=== PATIENT | male | born 1960 | race Caucasian/White ===

== ENCOUNTER 2017-12-22 13:51 | Observation (INO) | payer MEDICARE, MEDICAID ==
[2017-12-22] MEDS ORDERED: Ondansetron INJ* 2 MG/ML VIAL IV ONE (14:36)
[2017-12-22] MEDS ORDERED: cefTRIAXone(*) 1 GM in NS 0.9% 50 ML* 50 ML IVPB ONE (14:36)
[2017-12-22] MEDS ORDERED: NS 0.9% 1000 ML* 1,000 ML IV ONE (14:36)
[2017-12-22] MEDS ORDERED: fentaNYL* 50 MCG/ML 2 ML VIAL (100 MCG VIAL) IV SLOW PU ONE (14:37)
[2017-12-22 15:22] LABS: ABS Basophils 0 10^3/ul (0-0.2); ABS Eosinophils 0.1 10^3/ul (0-0.6); ABS Lymphocytes 1.6 10^3/ul (1.0-4.8); ABS Monocytes 1.1 10^3/ul (0-0.8); ABS Neutrophils 8.4 10^3/ul (1.5-7.7); ABS Nucleated RBC 0 10^3/ul; Eosinophil % 0.6 % (0-6); Hematocrit 40 % (42-52); Hemoglobin 14.2 g/dl (14.0-18.0); Lymphocyte % 14.3 % (25-47); Mean Corpuscular HGB Conc 35 g/dl (31-36); Mean Corpuscular Hemoglobin 36 pg (27-31); Mean Corpuscular Volume 103 fL (80-94); Mean Platelet Volume 8 um3 (7.4-10.4); Nucleated Red Blood Cells % 0; Platelet Count 300 10^3/ul (150-450); Red Blood Count 3.91 10^6/ul (4.0-5.4); Red Cell Distribution Width 14 % (10.5-15); White Blood Count 11.2 10^3/ul (3.5-10.8)
[2017-12-22 15:35] LABS: EGFR Non-African American 75.9 (>60)
[2017-12-22] MEDS ORDERED: oxyCODONE/Acetamin 5/325 MG* TAB PO PRN ×2 (16:46→16:47)
[2017-12-22] MEDS ORDERED: Acetaminophen TAB* 325 MG PO PRN (17:06)
[2017-12-22] MEDS ORDERED: Thiamine TAB* 100 MG TAB PO SCH (17:06)
[2017-12-22] MEDS ORDERED: NS 0.9% 1000 ML* 2,000 ML IV ONE (17:11)
[2017-12-22] MEDS ORDERED: Bacitracin OINTMENT* 0.5% 0.5 oz TUBE ONE (17:21)
[2017-12-22] MEDS ORDERED: LORazepam TAB(*) 1 MG PO SCH (18:00)
[2017-12-22] MEDS ORDERED: ceFAZolin 1 GM VIAL(*) 1 GM in NS 0.9% 50 ML* 50 ML IVPB SCH (18:00)
[2017-12-22] MEDS: ceFAZolin 1 GM VIAL(*) 1 GM in D5W 50 ML BAG* 50 ML IVPB SCH (19:18)
[2017-12-22] MEDS ORDERED: diPHENhydraMINE PO* 25 MG PO PRN (19:38)
[2017-12-22 19:48] LABS: Urine Appearance Clear; Urine Blood Negative (Negative); Urine Color Yellow; Urine Ketones Negative (Negative); Urine Protein Negative (Negative); Urine Specific Gravity 1.005 (1.010-1.030); Urine Urobilinogen Negative (Negative)
[2017-12-22] MEDS ORDERED: Gabapentin CAP(*) 300 MG PO SCH (20:00)
[2017-12-22] MEDS: NS 0.9% 1000 ML* 1,000 ML IV SCH (20:15)
[2017-12-22] MEDS ORDERED: Lisinopril TAB* 10 MG PO SCH (21:00)
[2017-12-22] MEDS ORDERED: Multivitamins/Minerals TAB PO SCH (21:00)
[2017-12-22] MEDS ORDERED: Atorvastatin* 10 MG TAB PO SCH (21:00)
[2017-12-22] MEDS ORDERED: Folic Acid TAB* 1 MG PO SCH (21:00)
[2017-12-22] MEDS ORDERED: Omeprazole CAP* 20 MG PO SCH (21:00)
[2017-12-22] MEDS ORDERED: QUEtiapine TAB* 100 MG PO SCH (21:00)
[2017-12-22] MEDS ORDERED: Aspirin TAB* 325 MG PO SCH (21:00)
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
[2017-12-22] MEDS: Heparin VIAL(*) 5000 UNITS/ML VIAL (FIVE THOUSAND) SUBCUT SCH (22:07)
[2017-12-23] MEDS: ceFAZolin 1 GM VIAL(*) 1 GM in D5W 50 ML BAG* 50 ML IVPB SCH ×2 (02:48→09:48)
[2017-12-23] MEDS: NS 0.9% 1000 ML* 1,000 ML IV SCH (04:58)
[2017-12-23] MEDS: Heparin VIAL(*) 5000 UNITS/ML VIAL (FIVE THOUSAND) SUBCUT SCH ×2 (05:43→14:11)
[2017-12-23] MEDS ORDERED: Gabapentin CAP(*) 300 MG PO SCH ×2 (08:00→14:00)
[2017-12-23] MEDS ORDERED: Influenza VAC *QUAD* 2017-18* 0.5 ML SYRINGE IM ONE (09:00)
[2017-12-23] MEDS ORDERED: Hydrochlorothiazide TAB* 25 MG PO SCH (09:00)
[2017-12-23 09:58] LABS: EGFR Non-African American 87.8 (>60)
[2017-12-23 10:23] LABS: Hematocrit 38 % (42-52); Hemoglobin 13.1 g/dl (14.0-18.0); Mean Corpuscular HGB Conc 35 g/dl (31-36); Mean Corpuscular Hemoglobin 36 pg (27-31); Mean Corpuscular Volume 105 fL (80-94); Mean Platelet Volume 8 um3 (7.4-10.4); Platelet Count 261 10^3/ul (150-450); Red Blood Count 3.62 10^6/ul (4.0-5.4); Red Cell Distribution Width 14 % (10.5-15); White Blood Count 8.6 10^3/ul (3.5-10.8)
[2017-12-23] MEDS ORDERED: Silver Sulfadiazine 1%* 85 GM TOPICAL SCH (14:00)
[2017-12-23 14:55] VITALS: BP 122/66
[2017-12-23] MEDS ORDERED: cefTRIAXone(*) 1 GM in NS 0.9% 50 ML* 50 ML IVPB SCH (17:00)
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
[2017-12-23] MEDS ORDERED: Thiamine TAB* 100 MG TAB PO SCH (21:00)
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
== END 2017-12-23 15:50 | disposition home or self-care (01) ==
LOC: ED 13:51 → MED 16:44 → UNDODISOB 12-23 15:58
PROVIDERS: ADMIT Internal Medicine; ATTEND Internal Medicine
DX: T21.02XA Burn of unspecified degree of abdominal wall, initial encounter (principal); L03.90 Cellulitis, unspecified; I73.9 Peripheral vascular disease, unspecified; I10 Essential (primary) hypertension; G62.9 Polyneuropathy, unspecified; K21.9 Gastro-esophageal reflux disease without esophagitis; E78.5 Hyperlipidemia, unspecified; X11.8XXA Contact with other hot tap-water, initial encounter; Y93.G3 Activity, cooking and baking; Y92.9 Unspecified place or not applicable; F17.210 Nicotine dependence, cigarettes, uncomplicated
CPT/HCPCS: 36415; 80048; 80053; 81003; 83605; 83690; 85025; 85027; 86140; 87040; 87070; 87077; 87186; 87205; 87640; 87641; 90471; 90686; 99282; A9270-GY; G0008; G0378; J0690; J0696; J1644; J2405; J3010

== ENCOUNTER 2020-04-18 17:33 | Inpatient (IN) ==
[2020-04-18] MEDS ORDERED: EPINEPHrine SULFITE FREE 1 MG/ML SUBCUT ONE (17:46)
[2020-04-18] MEDS ORDERED: methylPREDNISolone 125 mg 2 ML VIAL IV ONE (17:46)
[2020-04-18] MEDS ORDERED: NS 0.9% 1000 ml BAG 1,000 ML IV ONE ×2 (17:46→18:34)
[2020-04-18] MEDS ORDERED: Famotidine IV 10 MG/ML 2 ml VIAL (20 mg) IV SLOW PU ONE (17:47)
[2020-04-18] MEDS ORDERED: EPINEPHrine,Rac 2.25% NEB.SOL 0.5 ML INH ONE (17:51)
[2020-04-18 17:52] LABS: Hematocrit 38 % (42-52); Hemoglobin 13.5 g/dL (14.0-18.0); Mean Corpuscular HGB Conc 35 g/dL (31-36); Mean Corpuscular Hemoglobin 33 pg (27-31); Mean Corpuscular Volume 94 fL (80-94); Mean Platelet Volume 6.7 fL (7.4-10.4); Platelet Count 537 10^3/uL (150-450); Red Cell Distribution Width 16 % (10-15); White Blood Count 16.1 10^3/uL (3.5-10.8)
[2020-04-18] MEDS ORDERED: EPINEPHrine,Rac 2.25% NEB.SOL 0.5 ML ONE (17:52)
[2020-04-18] MEDS ORDERED: Succinylcholine 200 mg VIAL 20 mg/ml 10 ml VIAL (200 mg) ONE (18:05)
[2020-04-18] MEDS ORDERED: Rocuronium 50 mg VIAL 10 mg/ml 5 ml VIAL (50 mg) ONE (18:05)
[2020-04-18] MEDS ORDERED: fentaNYL 100 mcg/2 ml 50 MCG/ML VIAL IV SLOW PU ONE (18:08)
[2020-04-18] MEDS ORDERED: Midazolam 10 mg/10 ml VIAL 1 mg/ml 10 ml VIAL (10 mg) IV SLOW PU ONE (18:09)
[2020-04-18 18:10] LABS: Albumin 3.6 g/dL (3.2-5.2); Albumin/Globulin Ratio 0.9 (1-3); BUN/Creatinine Ratio 9.7 (8-20); C Reactive Protein 131.33 mg/L (<8.01); Calcium 9.8 mg/dL (8.6-10.3); EGFR African American 134.7 (>60); EGFR Non-African American 111.4 (>60); Globulin 4.1 g/dL (2-4); Potassium 4.1 mmol/L (3.5-5.0); Total Bilirubin 0.6 mg/dL (0.2-1.0); Total Protein 7.7 g/dL (6.4-8.9)
[2020-04-18 18:12] LABS: Troponin I 0.01 ng/mL (<0.03)
[2020-04-18 18:15] LABS: ABS Basophils 0.1 10^3/ul (0-0.2); ABS Lymphocytes 1.5 10^3/ul (1.0-4.8); Eosinophil % 0.2 %; Lymphocyte % 9.5 %; Nucleated Red Blood Cells % 0.1
[2020-04-18] MEDS ORDERED: Albuterol/Ipratropium NEB.SOL (2.5/0.5 MG) 3 ML NEB.SOLN ONE (18:20)
[2020-04-18] MEDS ORDERED: Albuterol 2.5mg/3 ml (0.083%) NEB.SOLN INH ONE (18:21)
[2020-04-18] MEDS ORDERED: Albuterol/Ipratropium NEB.SOL (2.5/0.5 MG) 3 ML NEB.SOLN INH ONE (18:26)
[2020-04-18] MEDS ORDERED: Azithromycin 500 mg/250 ml NS 500 MG/250 ML BAG IVPB ONE (19:15)
[2020-04-18] MEDS ORDERED: cefTRIAXone ADVAN VIAL 1 GM in NS 0.9% 50 ML 50 ML IVPB ONE (19:15)
[2020-04-18] MEDS ORDERED: NS 0.9% 50 ML 50 ML ONE (19:44)
[2020-04-18 19:49] LABS: INR 1.04 (0.82-1.09)
[2020-04-18] MEDS ORDERED: Iohexol 350 (CONTRAST) 500 ML MDV IV ONE (19:49)
[2020-04-18 19:50] LABS: Activated Partial Thrombo Time 29.9 seconds (26.0-38.0)
[2020-04-18] MEDS ORDERED: oxyCODONE/Acetamin 5/325 mg TAB PO PRN (21:10)
[2020-04-18] MEDS ORDERED: Enoxaparin 40 MG/0.4 ML SYR(*) SUBCUT SCH (22:00)
[2020-04-18 22:48] LABS: TSH (Thyroid Stimulating Horm) 3.19 mcIU/mL (0.34-5.60)
[2020-04-19 04:30] LABS: ABS Lymphocytes 0.5 10^3/ul (1.0-4.8); ABS Monocytes 0.2 10^3/ul (0-0.8); Eosinophil % 0.1 %; Hematocrit 32 % (42-52); Hemoglobin 11.5 g/dL (14.0-18.0); Lymphocyte % 5.3 %; Mean Corpuscular HGB Conc 36 g/dL (31-36); Mean Corpuscular Hemoglobin 34 pg (27-31); Mean Corpuscular Volume 95 fL (80-94); Platelet Count 412 10^3/uL (150-450); Red Blood Count 3.35 10^6 /uL (4.18-5.48); Red Cell Distribution Width 16 % (10-15)
[2020-04-19 04:45] LABS: BUN/Creatinine Ratio 13.3 (8-20); Blood Urea Nitrogen 8 mg/dL (6-24); CO2 Carbon Dioxide 23 mmol/L (22-32); Calcium 9.1 mg/dL (8.6-10.3); Chloride 91 mmol/L (101-111); EGFR African American 166.3 (>60); EGFR Non-African American 137.4 (>60); Glucose 158 mg/dL (70-100); Sodium 122 mmol/L (135-145)
[2020-04-19] MEDS ORDERED: NS 0.9% 1000 ml BAG 1,000 ML IV ONE (05:40)
[2020-04-19 05:43] LABS: Anion Gap 8 mmol/L (2-11)
[2020-04-19] MEDS: Nicotine PATCH 21 MG/24 HR PATCH TRANSDERM SCH (08:04)
[2020-04-19] MEDS ORDERED: cefTRIAXone ADVAN VIAL 1 GM in NS 0.9% 50 ML 50 ML IVPB SCH (18:00)
[2020-04-19] MEDS ORDERED: Azithromycin IV(*) 250 MG in NS 0.9% 250 ml 250 ML IVPB SCH (21:00)
[2020-04-19] MEDS: Enoxaparin 40 MG/0.4 ML SYR(*) SUBCUT SCH (22:03)
[2020-04-20] MEDS: Nicotine PATCH 21 MG/24 HR PATCH TRANSDERM SCH (08:14)
[2020-04-20 08:55] LABS: ABS Lymphocytes 1.9 10^3/ul (1.0-4.8); ABS Monocytes 0.5 10^3/ul (0-0.8); Eosinophil % 0.2 %; Hematocrit 34 % (42-52); Hemoglobin 11.6 g/dL (14.0-18.0); Lymphocyte % 15.1 %; Mean Corpuscular HGB Conc 34 g/dL (31-36); Mean Corpuscular Hemoglobin 33 pg (27-31); Mean Corpuscular Volume 96 fL (80-94); Mean Platelet Volume 6.9 fL (7.4-10.4); Platelet Count 439 10^3/uL (150-450); Red Blood Count 3.55 10^6 /uL (4.18-5.48); Red Cell Distribution Width 17 % (10-15); White Blood Count 12.3 10^3/uL (3.5-10.8)
[2020-04-20 09:13] LABS: BUN/Creatinine Ratio 16.7 (8-20); Calcium 9.7 mg/dL (8.6-10.3); EGFR African American 134.7 (>60); EGFR Non-African American 111.4 (>60); Magnesium 1.8 mg/dL (1.9-2.7); Potassium 3.9 mmol/L (3.5-5.0)
[2020-04-20] MEDS ORDERED: Magnesium Sulfate IV 1GM/100ML 1 GM/100 ML BAG IV ONE (09:22)
[2020-04-20] MEDS ORDERED: Levofloxacin 500 MG IVPREMIX(* 500 MG/100 ML BAG IVPB SCH (14:00)
[2020-04-20] MEDS ORDERED: Albuterol/Ipratropium NEB.SOL (2.5/0.5 MG) 3 ML NEB.SOLN INH PRN (15:34)
[2020-04-20] MEDS: diPHENhydraMINE IV 50 MG/ML 1 ml VIAL (BENADRYL) SLOW PUSH PRN (20:01)
[2020-04-20] MEDS: Enoxaparin 40 MG/0.4 ML SYR(*) SUBCUT SCH (21:31)
[2020-04-21] MEDS: diPHENhydraMINE IV 50 MG/ML 1 ml VIAL (BENADRYL) SLOW PUSH PRN (03:37)
[2020-04-21 07:45] LABS: Hematocrit 31 % (42-52); Hemoglobin 10.6 g/dL (14.0-18.0); Mean Corpuscular HGB Conc 34 g/dL (31-36); Mean Corpuscular Hemoglobin 33 pg (27-31); Mean Corpuscular Volume 95 fL (80-94); Platelet Count 424 10^3/uL (150-450); Red Blood Count 3.25 10^6 /uL (4.18-5.48); Red Cell Distribution Width 16 % (10-15); White Blood Count 11.4 10^3/uL (3.5-10.8)
[2020-04-21 07:53] VITALS: BP 151/81
[2020-04-21 08:01] LABS: BUN/Creatinine Ratio 18.2 (8-20); Calcium 9.4 mg/dL (8.6-10.3); EGFR Non-African American 123.1 (>60); Magnesium 1.8 mg/dL (1.9-2.7); Potassium 3.9 mmol/L (3.5-5.0)
[2020-04-21] MEDS: Nicotine PATCH 21 MG/24 HR PATCH TRANSDERM SCH (08:09)
[2020-04-22 14:15] LABS: Albumin 2.6 g/dL (3.4-4.7); Albumin/Globulin Ratio 0.73; Gamma Globulin 1.1 g/dL (0.6-1.6); Total Protein(PEP) 6.2 g/dL (6.3 - 7.9)
== END 2020-04-21 10:10 | disposition home or self-care (01) | DRG 194 ==
LOC: ED 17:33 → ICU 22:50 → MED 04-19 15:05
PROVIDERS: ADMIT Internal Medicine; ATTEND Hospitalist